=== PATIENT | female | born 1970 | race Caucasian/White ===

== ENCOUNTER 2016-12-23 11:47 | Day surgery (SDC) | payer OTHER ==
[2016-12-22 11:44] VITALS: BMI 35.2
[~2016-12-23 11:47] MED LIST: ceFAZolin SODIUM 1 GM VIAL IVPB ONE
[2016-12-23] MEDS ORDERED: BUPIVACAINE HCL/PF 0.5% (5MG/ML) 10 ML VIAL ONE (12:58)
[2016-12-23] MEDS ORDERED: INDOCYANINE GREEN 25 MG/10 ML VIAL IVPUSH ONE (12:58)
[2016-12-23] MEDS ORDERED: MIDAZOLAM HCL 2 MG/2 ML SINGLE DOSE VIAL ONE (14:01)
[2016-12-23] MEDS ORDERED: PROPOFOL 20 ML ONE ×2 (14:17→15:09)
[2016-12-23] MEDS ORDERED: ROCURONIUM BROMIDE 50 MG/5 ML VIAL ONE (14:18)
[2016-12-23] MEDS ORDERED: ceFAZolin SODIUM 1 GM VIAL ONE (14:27)
[2016-12-23] MEDS ORDERED: ceFAZolin SODIUM 1 GM VIAL IVPB ONE (14:28)
[2016-12-23] MEDS ORDERED: DEXAMETHASONE SOD PHOSPHATE 4 MG/1 ML VIAL ONE ×2 (14:36→15:36)
[2016-12-23] MEDS ORDERED: DESFLURANE GAS 240 ML BOTTLE IH ONE (14:46)
[2016-12-23] MEDS ORDERED: HYDROmorphone HCL/PF 1 MG/ML VIAL (FOR PYXIS CHARGING ONLY) ONE (15:24)
[2016-12-23] MEDS ORDERED: NEOSTIGMINE METHYLSULFATE 0.5 MG/ML - 10 ML MDV ONE (15:29)
[2016-12-23] MEDS ORDERED: BUPIVACAINE HCL/PF 0.5% (5MG/ML) 10 ML VIAL IJ ONE (15:34)
--- NOTE | 2016-12-23 15:43 | HP ---
History & Physical Update - History History: No Change - Physical Physical: No Change - Assessment Assessment: No Change - Plan Plan: No Change (Robotic possible open cholecystectomy)
--- NOTE | 2016-12-23 15:44 | OP ---
Operative Note - Note: Operative Date: 12/23/16 Pre-Operative Diagnosis: Biliary colic Operation: Robotic cholecystectomy Post-Operative Diagnosis: Same as Pre-op Surgeon: Chacorta Hicks Inspector Health Care Facilities: Sherry Tejeda Anesthesia: General Specimens Removed: Gallbladder Estimated Blood Loss (mls): 5 Operative Report Dictated: Yes
[2016-12-23] MEDS ORDERED: BACITRACIN 30 GM TUBE TOPICAL OINTMENT TP ONE (15:53)
[2016-12-23] MEDS ORDERED: ONDANSETRON 4 MG/2 ML VIAL IVPUSH PRN (15:57)
[2016-12-23] MEDS ORDERED: oxyCODONE HCL 5 MG TABLET PO PRN ×2 (15:57→16:33)
[2016-12-23] MEDS ORDERED: LACTATED RINGERS SOLUTION 1,000 ML IV SCH (16:00)
[2016-12-23] MEDS ORDERED: HYDROmorphone HCL CARPU-JECT 1 MG/1 ML DISP.SYRIN IVPB PRN (16:04)
[2016-12-23] MEDS ORDERED: OXYCODONE/APAP 5/325MG COMBO TABLET PO PRN (16:05)
[2016-12-23] MEDS ORDERED: D5-1/2NS+20 MEQ KCL - 1,000 ML IV SCH (16:15)
[2016-12-23] MEDS ORDERED: ACETAMINOPHEN 325 MG TABLET (FP) PO PRN (16:33)
[2016-12-23 17:39] VITALS: TEMP 97.6
[2016-12-23] MEDS ORDERED: oxyCODONE HCL 5 MG TABLET ONE (19:02)
[2016-12-23 20:08] VITALS: BP 125/78; PULSE 98
--- NOTE | 2016-12-23 20:25 | SURG ---
Surgery Wholesale Agronomist Note Wholesale Agronomist: Sherry Tejeda PA-C Date of Service: 12/23/16 Diagnosis: Pre-Operative Diagnosis: Biliary colic Procedure: Robotic cholecystectomy I was present for the entirety of the operative procedure. For further detail, please refer to operative report. Visit type - Case Type Case Type: Scheduled Admission - Emergency Emergency Visit: No - New patient This patient is new to me today: Yes Date on this admission: 12/23/16 - Critical Care Critical Care patient: No
--- NOTE | 2016-12-25 11:54 | OP ---
DATE OF OPERATION: 12/23/2016 SURGEON: Lennie Hicks MD LICENSED WEIGHER: CHEL Stanley PREOPERATIVE DIAGNOSIS: Biliary colic. POSTOPERATIVE DIAGNOSIS: Biliary colic. PROCEDURE: Robotic cholecystectomy. SPECIMEN: Gallbladder. ESTIMATED BLOOD LOSS: 5 mL. DRAINS: None. ANESTHESIA: GET. REASON FOR PROCEDURE: This is a 46-year-old female who presented to the office with abdominal pain. She was found to have biliary colic on workup. Because of the recurrent pain and biliary colic, she was consented for a robotic possible open cholecystectomy. The risks and benefits of the procedure were explained. RISKS AND BENEFITS: The risks and benefits of a robotic laparoscopic, possible open cholecystectomy were explained. These included bleeding, infection, hernia, [place], DVT, PE, injury to surrounding structures including the liver, colon, bowel, bile ducts, vessel injury, nerve injury, bile leak, and retained stones as some of the possible complications. The patient understood and signed informed consent. DESCRIPTION OF PROCEDURE: The patient was placed supine on the operating room table. The patient underwent general endotracheal intubation. The abdomen was prepped and draped in the usual sterile fashion. Time-out was performed. A periumbilical incision was made, and entrance into the abdominal cavity was attained using an 8-mm robotic trocar under direct visualization with the laparoscope. Pneumoperitoneum was established. Subsequently, an 8-mm robotic trocar was placed in the left lateral abdominal wall, and two 8-mm robotic trocars were placed in the right abdominal wall. The patient was placed in reverse Trendelenburg, [id number] position. The robot was brought over the field and docked. Dissection was performed at the console. The gallbladder was retracted cephalad and laterally. Any adherent omentum was carefully freed and dissected. The peritoneum was dissected and opened. The cystic duct followed by the cystic artery were carefully dissected. Firefly technology was used to confirm anatomy. At this point, the cystic duct followed by the cystic artery was clipped and transected. The gallbladder was removed off the liver bed using electrocautery. Hemostasis was achieved using electrocautery. The gallbladder was placed in an EndoCatch bag. Copious irrigation and suction were performed until clear. The gallbladder was removed from the abdominal cavity and sent off the field. All robotic instruments were removed. The robot was undocked and removed from the field. The fascia at the gallbladder extraction site was closed using a 0 Vicryl suture. All incision sites were irrigated and Marcaine was injected. Hemostasis of the incision sites was noted. All incision sites were closed using 4-0 Biosyn. Sterile dressings were applied. The patient tolerated the procedure well and was transferred to the recovery room in stable condition. LENNIE HICKS M.D. JACKIE/[id number]
--- NOTE | 2016-12-25 14:33 | PATH ---
Surgical Pathology Report Patient Name: SUE WORLEY [facility]. Rec. #: [id number] /Age/Gender: 1970 (Age: 46) / F Account: [id number] Location: [facility] SURGICAL Taken: 12/23/2016 Received: 12/24/2016 Reported: 12/25/2016 Physicians: Chacorta Hicks M.D. Specimen(s) Received GALLBLADDER Clinical History Cholecystitis Final Diagnosis GALLBLADDER, CHOLECYSTECTOMY: CHRONIC CHOLECYSTITIS, CHOLESTEROLOSIS AND CHOLELITHIASIS. Electronically Signed [place] M.D. Gross Description Received in formalin, labeled "gallbladder," is a 6.5 x 2.3 x 1.5 cm. gallbladder with a 0.2 cm. in length portion of cystic duct attached. The outer surface is lawler melvin and varies from smooth to shaggy. The lumen contains green, tenacious bile as well as a single 1.4 cm in greatest dimension green, spherical cholelith. The mucosa is green and velvety with gold cholesterol stippling. The wall of the gallbladder averages 0.2 cm. in thickness. Assembler Installer Structures sections are submitted in one cassette. /12/24/201612/24/2016
== END 2016-12-23 19:55 | disposition home or self-care (01) ==
LOC: JASU-SURG 11:47
PROVIDERS: ATTEND Surgery
PROC: 8E0W4CZ Robotic Assisted Procedure of Trunk Region, Percutaneous Endoscopic Approach (ICD-10-PCS; 2016-12-23)
PROC: 0FT44ZZ Resection of Gallbladder, Percutaneous Endoscopic Approach (ICD-10-PCS; principal; 2016-12-23 14:00)
DX: K80.10 Calculus of gallbladder with chronic cholecystitis without obstruction (principal)
CPT/HCPCS: 47562; S2900; 84703; 88304-TC; 94760

== ENCOUNTER 2017-06-17 08:03 | Inpatient (IN) | payer OTHER ==
[2017-06-16 17:12] VITALS: BMI 35.5
[2017-06-17] MEDS ORDERED: DESFLURANE GAS 240 ML BOTTLE IH ONE (09:37)
[2017-06-17] MEDS ORDERED: BUPIVACAINE HCL/PF 0.5% (5MG/ML) 10 ML VIAL ONE (09:39)
[2017-06-17] MEDS ORDERED: PROPOFOL 20 ML ONE ×2 (11:54)
[2017-06-17] MEDS ORDERED: ROCURONIUM BROMIDE 50 MG/5 ML VIAL ONE (11:54)
[2017-06-17] MEDS ORDERED: ceFAZolin SODIUM 1 GM VIAL IVPB ONE ×2 (12:07→12:37)
[2017-06-17] MEDS ORDERED: ceFAZolin SODIUM 1 GM VIAL ONE (12:15)
[2017-06-17] MEDS ORDERED: BUPIVACAINE HCL/PF 0.5% (5MG/ML) 10 ML VIAL IJ ONE (14:31)
[2017-06-17] MEDS ORDERED: IBUPROFEN 800 MG/8 ML IJ IVPB PRN (14:38)
[2017-06-17] MEDS ORDERED: ONDANSETRON 4 MG/2 ML VIAL IVPUSH PRN (14:38)
[2017-06-17] MEDS ORDERED: HYDROmorphone HCL CARPU-JECT 1 MG/1 ML DISP.SYRIN IVPUSH PRN (14:38)
[2017-06-17] MEDS ORDERED: oxyCODONE HCL 5 MG TABLET PO PRN (14:38)
[2017-06-17] MEDS ORDERED: LACTATED RINGERS SOLUTION 1,000 ML IV SCH (14:45)
[2017-06-17] MEDS: LABETALOL HCL 5 MG/1 ML (100MG/20 ML VIAL) IVPUSH PRN ×2 (14:55→15:00)
--- NOTE | 2017-06-17 15:19 | HP ---
History & Physical Update - History History: No Change - Physical Physical: No Change - Assessment Assessment: No Change - Plan Plan: No Change Currently as noted:: Laparoscopic possible open vertical sleeve gastrectromy for morbid obesity
--- NOTE | 2017-06-17 15:20 | OP ---
Operative Note - Note: Operative Date: 06/17/17 Pre-Operative Diagnosis: Morbid Obesity Operation: Laparoscopic vertical sleeve gastrectomy Post-Operative Diagnosis: Same as Pre-op Surgeon: Chacorta Hicks Senior Ruby Developer: Felix Dang Anesthesia: General Specimens Removed: Greater curvature of the stomach Estimated Blood Loss (mls): 100 Drains & Tubes with Location: 36 Fr Bougie Operative Report Dictated: Yes
[2017-06-17] MEDS ORDERED: HYDROmorphone HCL CARPU-JECT 1 MG/1 ML DISP.SYRIN IVPB PRN ×2 (15:34→16:01)
[2017-06-17] MEDS ORDERED: ACETAMINOPHEN 1000 MG/100 ML VIAL (NON FORMULARY) IVPB SCH (15:45)
[2017-06-17] MEDS ORDERED: ONDANSETRON 4 MG/2 ML VIAL IVPB SCH (15:45)
[2017-06-17] MEDS ORDERED: METOCLOPRAMIDE HCL INJECTION 10 MG/2 ML VIAL IVPB SCH (15:45)
[2017-06-17] MEDS ORDERED: SODIUM CHLORIDE 1,000 ML IV SCH (15:45)
[2017-06-17] MEDS: ACETAMINOPHEN 1000 MG/100 ML VIAL (NON FORMULARY) IVPB SCH ×2 (16:00→21:42)
[2017-06-17] MEDS: SODIUM CHLORIDE 1,000 ML IV SCH (16:15)
[2017-06-17] MEDS: METOCLOPRAMIDE HCL INJECTION 10 MG/2 ML VIAL IVPB SCH ×2 (16:15→21:34)
--- NOTE | 2017-06-17 16:38 | SPEC ---
DATE OF OPERATION: 06/17/2017 SURGEON: Lennie Hicks MD CALL CENTER COORDINATOR: Felix Dang MD PREOPERATIVE DIAGNOSIS: Morbid obesity. POSTOPERATIVE DIAGNOSIS: Morbid obesity. PROCEDURE: Laparoscopic vertical sleeve gastrectomy. SPECIMEN: Greater curvature of the stomach. ESTIMATED BLOOD LOSS: 100 mL DRAINS: None. ANESTHESIA: GET. REASON FOR PROCEDURE: This is a 46-year-old female who presented to the office for bariatric surgery. After describing different options, she decided to proceed with a laparoscopic, possible open vertical sleeve gastrectomy. RISKS AND BENEFITS: After describing the different options for weight loss management, the patient decided to proceed with a laparoscopic, possible open vertical sleeve gastrectomy. The patient was seen by the respective subspecialties and cleared for surgery. The risks and benefits of the procedure were explained. These included bleeding, infection, hernia, [place], DVT, PE, injury to surrounding structures including the liver, colon, bowel, spleen, esophagus, vessel injury, nerve injury, weight regain, gastric leak, staple line leak, sleeve leak, obstruction, vitamin deficiency, hair loss, and as some of the possible complications. The patient understood and signed informed consent. DESCRIPTION OF PROCEDURE: The patient was placed supine on the operating room table. The patient underwent general endotracheal intubation. A Orozco catheter was inserted. The arms were brought out at 90 degrees and secured. A foot board was placed, and the legs were secured laterally with padding. The abdomen was prepped and draped in the usual sterile fashion. A timeout was performed. An incision was made in the left upper quadrant, and a Veress needle inserted. Pneumoperitoneum was established. Subsequently, the Veress needle was removed, and a 12-mm trocar was placed. The laparoscopic camera was inserted, and inspection of the abdominal cavity was performed. An incision was made in the supraumbilical region, and a 15-mm trocar placed under direct visualization. A 5-mm trocar was then placed in the right upper quadrant, and a 5-mm trocar placed below the left subcostal margin. A stab wound was made in the subxiphoid area, and a Pepper clamp inserted and removed to dilate the tract. A Shahnaz liver retractor was inserted. The post was secured at the bedside by the nursing staff. The patient was placed in steep reverse Trendelenburg position. The Shahnaz liver retractor was used to secure the liver towards the anterior abdominal wall. The pylorus was identified and 6 cm proximal to it, the lesser sac was entered using the Ligasure device. All lateral attachments to the greater curvature of the stomach including the short gastric vessels were ligated using the Ligasure device toward the gastrosplenic and gastrophrenic ligaments. Once this was done in its entirety, it was confirmed that all tubes within the nasal or oropharyngeal cavity including a temperature probe was removed by Anesthesia. The bougie was then inserted by Anesthesia. Transection of the stomach was then begun staying adjacent to the bougie but away from the angularis. Transection of the stomach was performed near the portion of the stomach where the lesser sac was entered. Two laparoscopic Endo-CHANDA black loads were used at this location. Laparoscopic Endo-CHANDA purple loads were then used for the remainder of the transection until the greater curvature of the stomach was fully transected. This was done staying close to the bougie. Care was taken to stay away from the angle of His cephalad. The staple line was then inspected. Hemostasis was identified. A leak test was then performed. The stomach was clamped distally to the staple line. Irrigation solution was placed in the left upper quadrant, and air insufflated by Anesthesia into the sleeve. No leaks were identified, and no obstruction was identified. This was done throughout the entirety of the staple line. At this point, the irrigation solution was suctioned, and again hemostasis noted. The 15-mm supraumbilical trocar was then removed, and the specimen removed from the site using a sponge stick uribe. The specimen was inspected, and a Veress needle inserted. The specimen insufflated adequately, and no leak was identified. The staple line was noted to be intact. A Murray Nikole device was then used to temporarily close the fascia with a 0 Vicryl suture at this site. The 15-mm trocar was then reinserted, and the 12-mm trocar in the left upper quadrant removed. The fascia at this site was then closed using a Murray Nikole device with a 0 Vicryl suture. Again, hemostasis was noted. The Shahnaz liver retractor was then removed under direct visualization. Pneumoperitoneum was desufflated, and the fascial sutures were secured. Hemostasis was noted at all incision sites, and Marcaine was injected at all incision sites. All incision sites were closed using 4-0 Biosyn. Sterile dressings were applied. The patient tolerated the procedure well, and was transferred to the recovery room in stable condition with the Orozco catheter intact. The patient was transferred to telemetry for further monitoring. Because of oozing at the staple line, the entirety of the staple line was oversewn with an Endostitch device with a 2-0 Ethibond suture. The entirety of the staple line was noted to be hemostatic and fully intact. LENNIE HICKS M.D. JACKIE/[id number]
[2017-06-17 16:41] LABS: MCH 30.3 pg (25.7-33.7); MCHC 33.6 g/dl (32.0-36.0); MEAN CELL VOLUME 90.1 fl (80-96); MEAN PLT VOLUME 9.8 fl (7.5-11.1); PLATELET COUNT 173 K/MM3 (134-434); RDW 14.1 % (11.6-15.6); WHITE BLOOD COUNT 14.9 K/mm3 (4.0-10.0)
[2017-06-17 17:03] LABS: ALBUMIN 3.5 g/dl (3.4-5.0); ALK PHOS 68 U/L (45-117); ANION GAP 7 (8-16); BILIRUBIN,TOTAL 0.4 mg/dL (0.2-1.0); CO2 27 mmol/L (21-32); CREATININE 0.8 mg/dL (0.55-1.02); GLUCOSE,RANDOM 132 mg/dL (74-106); SGOT/AST 53 U/L (15-37); SGPT/ALT 59 U/L (12-78); TOT PROT 6.5 g/dl (6.4-8.2)
[2017-06-17] MEDS: ONDANSETRON 4 MG/2 ML VIAL IVPB SCH (20:13)
[2017-06-17] MEDS: FAMOTIDINE 20 MG/50 ML IVPB 50 ML IVPB SCH (21:41)
[2017-06-17] MEDS: ENOXAPARIN NA (PORCINE) 40 MG/0.4 ML DISP.SYRIN SQ SCH (21:41)
[2017-06-17] MEDS ORDERED: ENOXAPARIN NA (PORCINE) 40 MG/0.4 ML DISP.SYRIN SQ SCH (22:00)
[2017-06-17] MEDS ORDERED: FAMOTIDINE 20 MG/50 ML IVPB 50 ML IVPB SCH (22:00)
[2017-06-18] MEDS: ONDANSETRON 4 MG/2 ML VIAL IVPB SCH ×6 (00:02→20:52)
[2017-06-18] MEDS: ACETAMINOPHEN 1000 MG/100 ML VIAL (NON FORMULARY) IVPB SCH ×2 (03:22→10:03)
[2017-06-18] MEDS: METOCLOPRAMIDE HCL INJECTION 10 MG/2 ML VIAL IVPB SCH ×4 (03:23→21:59)
[2017-06-18 07:26] LABS: MEAN CELL VOLUME 90.9 fl (80-96); PLATELET COUNT 161 K/MM3 (134-434); RDW 14.2 % (11.6-15.6); WHITE BLOOD COUNT 9.3 K/mm3 (4.0-10.0)
[2017-06-18 08:37] LABS: ALBUMIN 3.1 g/dl (3.4-5.0); ANION GAP 11 (8-16); BILIRUBIN,TOTAL 0.7 mg/dL (0.2-1.0); CALCIUM 8.1 mg/dL (8.5-10.1); CO2 22 mmol/L (21-32); CREATININE 0.7 mg/dL (0.55-1.02); GLUCOSE,RANDOM 96 mg/dL (74-106); SGOT/AST 28 U/L (15-37); SGPT/ALT 44 U/L (12-78); TOT PROT 5.9 g/dl (6.4-8.2)
[2017-06-18 08:38] LABS: ALK PHOS 63 U/L (45-117)
[2017-06-18] MEDS: FAMOTIDINE 20 MG/50 ML IVPB 50 ML IVPB SCH ×2 (10:04→21:59)
[2017-06-18] MEDS: ENOXAPARIN NA (PORCINE) 40 MG/0.4 ML DISP.SYRIN SQ SCH ×2 (10:04→21:59)
[2017-06-18] MEDS ORDERED: ACETAMINOPHEN 325 MG TABLET (FP) PO PRN (12:27)
[2017-06-18] MEDS ORDERED: oxyCODONE HCL 5 MG TABLET PO PRN (12:27)
[2017-06-18] MEDS ORDERED: SODIUM CHLORIDE 1,000 ML IV SCH (12:30)
--- NOTE | 2017-06-18 16:01 | PN ---
Progress Note (short form) - Note Progress Note: POD 1 Mild nausea Pain controlled Vital Signs Period Temp Pulse Resp BP Sys/Khanna Pulse Ox Last 24 Hr 97.8 F-99.0 F 75-96 14-20 121-150/61-90 94-96 Abd soft, dressings in place CBC, BMP 06/18/17 05:35 06/18/17 05:35 UGI- no leak/obstruction Clears OOB Discharge planning
--- NOTE | 2017-06-18 16:02 | DS ---
Physical Examination Vital Signs: Vital Signs Temperature 98.3 F 06/18/17 14:22 Pulse Rate 89 06/18/17 14:22 Respiratory Rate 18 06/18/17 14:22 Blood Pressure 134/87 06/18/17 14:22 O2 Sat by Pulse Oximetry (%) 94 L 06/18/17 09:00 Constitutional: Yes: Calm Neck: Yes: WNL Cardiovascular: Yes: Regular Rate and Rhythm Respiratory: Yes: Regular Gastrointestinal: Yes: Soft Wound/Incision: Yes: Dressing Dry and Intact Neurological: Yes: Alert, Oriented Labs: CBC, BMP 06/18/17 05:35 06/18/17 05:35 Discharge Summary Reason For Visit: MORBID (SEVERE) OBESITY DUE TO EXCESS CALORIES Current Active Problems Morbid obesity due to excess calories (Acute) Procedures: Principal: Laparoscopic vertical sleeve gastrectomy Condition: Stable - Instructions Diet, Activity, Other Instructions: [address] [facility] Chacorta Hicks M.D. [address] [place] [address], [address] [facility] [place] [address] Robotic, Bariatric and General Surgery Postoperative Instructions for Bariatric Surgery Activity: Resume normal everyday activity as tolerated. You may walk and climb stairs without any limitation. We encourage you to walk as often as you can Do not lift anything more than 10 pounds for 8 weeks. At that time, you can return to full activity, including the gym, without limitation. Do not drive a motor vehicle while taking prescribes narcotic pain medication. Wound Care: If you have a bandage in place, leave it on for 3 days. At that time you may remove the outer bandage. If there are strips of tape on the skin after removing the outer bandage, leave them in place. They will fall off by themselves. Do not remove them. If there is clear glue on the skin after removing the outer bandage, leave it in place. Do not pick at it or peel it off. You may shower after taking the outer bandage off, 3 days after your surgery. If incisions become red, warm or open, please call the office. Diet: Continue a sugar-free, non-carbonated Clear liquid diet three times a day for the first week-Stage I diet. In addition, you should drink 8 ounces of water every hour. When drinking, sips should be slow and steady, not large and quick. After the first week, call the office to be advanced to the next dietary stage. Do not advance stages until instructed. Your diet will be advanced over the phone each week. Medications/Pain Management: You may resume previous medications unless told otherwise. The pills may be swallowed whole or broken if scored. You may take the prescribed narcotic pain medication as needed. If the narcotic medication is not needed for pain control, you may take Tylenol. Avoid all other pain medications including Advil, Ibuprofen, Motrin, Aspirin, Naprosyn, Aleve, Celebrex. You will receive Pepcid. Please take this twice a day as prescribed. Dizziness,Headaches/Gas Pain: Make sure you are getting enough fluids daily. Patients on diuretics or water pills may need medication adjusted. Some fluids such as broth or Gatorade may help. Gas pains are common in the first few weeks after surgery. At times they can be worse than surgical pain. Walking can help. You can also use Mylanta, Maalox, or Gas-X. Vomiting/Nausea: This may occur if you eat too fast, don't chew, or eat too much. Go back to fluids. If the vomiting or nausea persists, call the office. Constipation/Diarrhea: You may experience a change in bowel habits. Many things affect this, including a decrease in food intake, not enough fluid and taking pain medication. Some people experience diarrhea after the barium swallow in x-ray. If either persist, call the office. Follow up: Call the office at [phone] for an appointment 2 weeks after your surgical procedure. Disposition: HOME - Home Medications Comprehensive Discharge Medication List: Ambulatory Orders Methylphenidate HCl [Ritalin] 10 mg PO BID 12/22/16 Sertraline HCl [Zoloft] 200 mg PO DAILY 12/22/16 Docusate Sodium [Colace -] 100 mg PO DAILY 06/16/17 Famotidine [Pepcid] 20 mg PO BID #60 tablet 06/17/17 Oxycodone HCl/Acetaminophen [Percocet 5-325 mg Tablet] 1 - 2 tab PO Q6H #28 tab MDD 4 06/17/17
--- NOTE | 2017-06-18 16:16 | PN ---
Progress Note, Physician Chief Complaint: Pt. resting comfortably, pain controlled, no GA complaints. - Current Medication List Current Medications: Active Medications Acetaminophen (Tylenol -) 325 mg PO Q4H PRN PRN Reason: FEVER OR PAIN Enoxaparin Sodium (Lovenox -) 40 mg SQ BID [facility] Last Admin: 06/18/17 10:04 Dose: 40 mg Hydromorphone HCl (Dilaudid Injection -) 1 mg IVPB Q3H PRN PRN Reason: PAIN Famotidine/Sodium Chloride (Pepcid 20 Mg Premixed Ivpb -) 50 mls @ 100 mls/hr IVPB BID [facility] Last Admin: 06/18/17 10:04 Dose: 100 mls/hr Sodium Chloride (Normal Saline -) 1,000 mls @ 150 mls/hr IV ASDIR [facility] Last Admin: 06/17/17 16:15 Dose: 150 mls/hr Metoclopramide HCl (Reglan Injection -) 10 mg IVPB Q6H [facility] Last Admin: 06/18/17 10:04 Dose: 10 mg Ondansetron HCl (Zofran Injection) 4 mg IVPB Q4H [facility] Last Admin: 06/18/17 13:22 Dose: 4 mg Oxycodone HCl (Roxicodone -) 5 mg PO Q4H PRN PRN Reason: PAIN - Objective Vital Signs: Vital Signs Temperature 98.3 F 06/18/17 14:22 Pulse Rate 89 06/18/17 14:22 Respiratory Rate 18 06/18/17 14:22 Blood Pressure 134/87 06/18/17 14:22 O2 Sat by Pulse Oximetry (%) 94 L 06/18/17 09:00 Constitutional: Yes: Well Nourished, No Distress, Calm Musculoskeletal: Yes: WNL Neurological: Yes: WNL, Alert, Oriented Labs: CBC, BMP 06/18/17 05:35 06/18/17 05:35 Assessment/Plan POD#1 s/p Laparoscopic gastric sleeve under GA. Doing well. D/C from anesthesia care.
[2017-06-18] MEDS: SODIUM CHLORIDE 1,000 ML IV SCH (16:55)
[2017-06-19] MEDS: ONDANSETRON 4 MG/2 ML VIAL IVPB SCH ×3 (00:18→07:47)
[2017-06-19] MEDS: METOCLOPRAMIDE HCL INJECTION 10 MG/2 ML VIAL IVPB SCH (04:24)
[2017-06-19 06:21] VITALS: BP 142/74; PULSE 86; TEMP 98.2
--- NOTE | 2017-06-21 11:27 | PATH ---
Surgical Pathology Report Patient Name: SUE WORLEY [facility]. Rec. #: [id number] /Age/Gender: 1970 (Age: 46) / F Account: [id number] Location: 4 W TELEMETRY U Taken: 06/17/2017 Received: 06/18/2017 Reported: 06/21/2017 Physicians: Chacorta Hicks M.D. Specimen(s) Received GREATER CURVATURE STOMACH Clinical History Morbid (severe) obesity due to excess calorie Final Diagnosis STOMACH, GREATER CURVATURE, LAPAROSCOPIC VERTICAL SLEEVE GASTRECTOMY: PORTION OF STOMACH WITH MILD CHRONIC GASTRITIS. IMMUNOSTAIN FOR H. PYLORI IS NEGATIVE FOR ORGANISMS. Electronically Signed León Gore M.D. Gross Description Received in formalin, labeled "greater curvature of stomach" is a 113 gram, 21 x 4 x 3 cm portion of stomach with a stapled margin of resection. The serosa is lawler-de la garza with minimal attached fat. The mucosa is lawler-pink with normal folds. No mucosal masses are identified. Kiln Charger sections are submitted in one cassette. [facility]/06/18/2017 [facility]/06/18/2017
== END 2017-06-19 09:47 | disposition home or self-care (01) | DRG 403 ==
LOC: JSAMEDAYSX 08:03 → EDSTATUS 09:00 → J4W 17:20
PROVIDERS: ADMIT Surgery; ATTEND Surgery
PROC: 0DB64Z3 Excision of Stomach, Percutaneous Endoscopic Approach, Vertical (ICD-10-PCS; principal; 2017-06-17 10:30)
DX: E66.01 Morbid (severe) obesity due to excess calories (principal); Z68.35 Body mass index [BMI] 35.0-35.9, adult
CPT/HCPCS: 36415; 74241-TC; 80053; 84703; 85027; 86850; 86900; 86901; 88305-TC; 94010; 94760